=== PATIENT | female | born 1980 | race African-American/Black ===

== ENCOUNTER 2016-07-05 17:19 | Inpatient (IN) | payer OTHER ==
--- NOTE | ~2016-07-05 | HP ---
Unit #: [id number] #: [id number] Patient: PEARL MOBLEY [id number] [place] [address] [id number] MR#: [id number] NAME: PEARL MOBLEY ROOM: 63 Age: 35 Sex: F Admission Date: 07/05/2016 : 1980 Attending Physician: Arsalan Hsieh M.D. Admitting Physician: Arsalan Hsieh M.D. Primary Care Physician: Primary Care Physician No HISTORY AND PHYSICAL HISTORY OF PRESENT ILLNESS Pearl is a 35-year-old female admitted on 07/05/[address] [place] [address] for psychosis. She abruptly stopped taking her psych medications, has stopped taking care of herself, stopped talking and her family has been concerned about her. During the evaluation she did not answer any questions just stared at me occasionally shrugged her shoulders or shake her head. Therefore, all information is taken from records. PAST MEDICAL HISTORY Obesity. PAST SURGICAL HISTORY None documented. SOCIAL HISTORY She is , living with her and children. 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 No tobacco, alcohol or illegal drug use documented. FAMILY HISTORY Noncontributory. REVIEW OF SYSTEMS CONSTITUTIONAL: No fever or chills. HEENT: Denies any sore throat, ear pain or runny nose. CARDIOVASCULAR: Denies chest pain, irregular heart rhythm or palpitations. CHEST: Denies shortness of breath or cough. No hemoptysis. GASTROINTESTINAL: Denies nausea, vomiting, diarrhea or chronic constipation. ENDOCRINE: Denies history of increased thirst or urination. No recent significant weight loss or gain. GENITOURINARY: Denies dysuria, frequency, or hematuria. SKIN: Denies any rashes. HEMATOLOGIC: Denies history of increased bleeding or bruising. MUSCULOSKELETAL: Denies any hot, swollen joints. No generalized muscle pain. NEUROLOGIC: Denies problems with vision or speech. No frequent, severe headaches. No numbness, tingling or weakness in any extremities. Denies loss of bladder or bowel control. CURRENT MEDICATIONS Unit #: [id number] #: [id number] Patient: PEARL MOBLEY 1. Trazodone 2. Seroquel ALLERGIES No known drug allergies. PHYSICAL EXAMINATION GENERAL: Alert, oriented, in no acute distress. VITAL SIGNS: Blood pressure 126/92, heart rate 101, temperature 98.7. SKIN: Warm and dry without rash or lesion. HEENT: Normocephalic. TMs not viewed. Oral and nasal passages clear. Conjunctivae clear. PERRLA. EOMs intact. NECK: Supple without lymphadenopathy or thyromegaly. HEART: Regular rate and rhythm without murmur. LUNGS: Clear. ABDOMEN: Soft, nontender, without masses or hepatosplenomegaly. : Not done. EXTREMITIES: No evidence of cyanosis, clubbing or edema. Moves all without focal deficit. NEUROLOGICAL: Grossly within normal limits. Cranial Nerves: II: Visual mota are intact. III, IV AND : Extraocular movements are intact. Pupils are equal, round and reactive to light. V: Facial sensation is grossly normal. VII: Facial movements and expression are normal. VIII: Auditory acuity grossly intact. IX, X: Uvula is midline. Phonation is normal. XI: Patient shrugs shoulders and turns head normally. XII: Tongue protrudes in the midline. Sensory and Motor Function: Sensory and motor sensation is grossly normal. Motor: moves all extremities well. Coordination: Gait is normal. Deep Tendon Reflexes: Intact. IMPRESSION Psychiatric admission. RECOMMENDATIONS Psychiatric, per psychiatrist. MEDICAL: I see no contraindications to participating in facility's activities. MEDICAL PROGNOSIS Good. MEDICAL CONDITION Stable. Dictated by... Vimal Trevino TD: 07/06/2016 22:37 JOB #: [id number] Unit #: [id number] #: [id number] Patient: PEARL MOBLEY HISTORY AND PHYSICAL X RUPALI MILLIGAN APRN HISTORY AND PHYSICAL
--- NOTE | ~2016-07-05 | PN ---
Unit #: [id number] #: [id number] Patient: PEARL MOBLEY [id number] [facility] [address] [place] [address] [id number] Marielena MR#: [id number] NAME: PEARL MOBLEY ROOM: [facility] Age: 35 Sex: F Admission Date: 07/05/2016 : 1980 Attending Physician: Arsalan Hsieh M.D. Admitting Physician: Arsalan Hsieh M.D. Primary Care Physician: Primary Care Physician Christi COX NOTES DATE OF SERVICE: 07/07/2016 DISCUSSION I encountered Pearl crawling down the hallway of the unit, wiping the floor with her hands, she again refused to interact with me or acknowledge my presence, although I did several times attempt to speak to her. Staff reports she has been noncompliant with medications. Last night, she began yelling and running down the ott, and bumped her head on the wall. Neuro checks overnight were unremarkable and she showed no external evidence of injury. She appears alert and oriented to person and location only with poor memory and concentration and active, and intrusive psychosis. ASSESSMENT Bipolar mixed psychotic features. PLAN I will make Seroquel available at anytime to improve compliance and we will continue current precautions. Dictated by... Arsalan Hsieh M.D. DARREL/bakari TD: 07/08/2016 03:06 JOB #: [id number] MEKA COX NOTES Page 1 of 1 X Arsalan Hsieh MD X PROGRESS NOTE
--- NOTE | ~2016-07-05 | PN ---
Unit #: [id number] #: [id number] Patient: PEARL MOBLEY [id number] [facility] [address] [place] [address] [id number] MR#: [id number] NAME: PEARL MOBLEY ROOM: [facility] Age: 35 Sex: F Admission Date: 07/05/2016 : 1980 Attending Physician: Arsalan Hsieh M.D. Admitting Physician: Arsalan Hsieh M.D. Primary Care Physician: Christi Primary Care Physician MEKA COX NOTES DATE 07/11/2016. DISCUSSION Pearl continues to refuse medications and is now continuing to refuse oral fluids except for small amounts that can be given by specific staff members. She has also refused to eat. Last night she was showing some agitation and required intermuscular Ativan, but refused her bedtime Seroquel. This morning during my interview she once again refuses to engage in conversation, and is "shaking" in her bed, some of which appears to me to be voluntary. She did allow me to take her pulse, which seemed relatively normal, and her skin did not show any signs of clinical dehydration. When gathered a fingerstick blood glucose and requested by me during my rounds was normal at 100. ASSESSMENT Bipolar mixed with psychotic features. PLAN To assess for clinical dehydration, I am going to obtain a stat basic metabolic panel. We will continue to use p.r.n. medications as necessary and encourage the patient to comply fully with her scheduled medications. If further medical decompensation occurs, she may be transferred to another hospital for fluids. Dictated by... Skylar Roman/hector TD: 07/11/2016 13:32 JOB #: [id number] MEKA PROGRESS NOTES Page 1 of 1 X Arsalan Hsieh MD PROGRESS NOTE
--- NOTE | ~2016-07-05 | PN ---
Unit #: [id number] #: [id number] Patient: PEARL MOBLEY [id number] [facility] [address] [place] [address] [id number] I MR#: [id number] NAME: PEARL MOBLEY ROOM: [facility] Age: 35 Sex: F Admission Date: 07/05/2016 : 1980 Attending Physician: Arsalan Hsieh M.D. Admitting Physician: Arsalan Hsieh M.D. Primary Care Physician: Primary Care Physician Christi COX NOTES DATE OF SERVICE: 07/10/2016 DISCUSSION Pearl has now returned to refusing all medications. Her 72-hour hold is expiring, and we are forced with either finding an option for voluntary admission were finally mental inquest warrant. I will consult with our social services counselor and nursing staff about the options. She remains acutely psychotic with poor insight. ASSESSMENT Bipolar disorder mixed with psychotic features. PLAN Continue current medications and seek clarification of admission status. Dictated by... Skylar Roman/baakri TD: 07/17/2016 03:05 JOB #: [id number] MEKA PROGRESS NOTES Page 1 of 1 X Arsalan Hsieh MD PROGRESS NOTE
--- NOTE | ~2016-07-05 | DS ---
Unit #: [id number] #: [id number] Patient: PEARL MOBLEY [id number] [place] [address] [id number] I MR#: [id number] NAME: PEARL MOBLEY ROOM: [facility] Age: 35 Sex: F Admission Date: 07/05/2016 : 1980 Discharge Date: 07/22/2016 Attending Physician: Arsalan Hsieh M.D. Primary Care Physician: Primary Care Physician No DISCHARGE SUMMARY REASON FOR ADMISSION Pearl is a 35-year-old woman with a history of bipolar disorder, who has been noncompliant with medications and had stopped eating and taking oral fluids. She was essentially nonresponsive when her family brought her in and was admitted for stabilization. HOSPITAL COURSE The patient was admitted and placed on psychosis precautions. Her home medications were restarted and fluids and food were encouraged. She typically avoided interactions, refusing to answer questions and making poor eye contact. She occasionally engages in bizarre posturing or crawling on the floor, and continued to refuse medications for some time. Seroquel was provided to be given anytime that she would accept. She began to comply with medications after a period of time, and showed no signs of clinical dehydration. When she began Seroquel, she began to sleep a little better and her psychosis improved. She still had some paranoia on the date of discharge, but refused to stay any further and her family felt they could handle her in the home environment. DISCHARGE DIAGNOSES AXIS I: Bipolar mixed. AXIS II: No diagnosis. AXIS III: Recent yeast infection. AXIS IV: AXIS V: DISCHARGE INSTRUCTIONS Follow up with [facility] for mental health care and primary care physician. DISCHARGE MEDICATIONS Seroquel 400 mg at bedtime for psychosis, trazodone 100 mg at bedtime, and terconazole were discontinued. CONDITION AT DISCHARGE Fair. PROGNOSIS Fair, but will improve with compliance and activity. DIET AND ACTIVITY Ad gutierrez. Unit #: [id number] #: [id number] Patient: PEARL MOBLEY Dictated by... Arsalan Hsieh M.D. [facility]/asaell TD: 09/08/2016 00:06 JOB #: [id number] DISCHARGE SUMMARY Page 1 of 1 X Arsalan Hsieh MD DISCHARGE SUMMARY
--- NOTE | ~2016-07-05 | PN ---
Unit #: [id number] #: [id number] Patient: PEARL MOBLEY [id number] [facility] [address] [place] [address] [id number] MR#: [id number] NAME: PEARL MOBLEY ROOM: 63 Age: 35 Sex: F Admission Date: 07/05/2016 : 1980 Attending Physician: Arsalan Hsieh M.D. Admitting Physician: Arsalan Hseih M.D. Primary Care Physician: Primary Care Physician Christi ACKERMAN PROGRESS NOTES DATE 07/08/2016 DISCUSSION Pearl continues to refuse to interact with me or engage in conversation. She tends to sit in the hallway, and is occasionally prompted by nurses to return to her room. She did comply with her medication last night. She is alert and oriented to person and location only with poor memory concentration, ongoing psychosis. ASSESSMENT Bipolar mixed with psychotic features. PLAN Continue Seroquel and current precautions. Dictated by... Skylar RomanH/mane TD: 07/09/2016 07:47 JOB #: [id number] MEKA PROGRESS NOTES Page 1 of 1 X Arsalan Hsieh MD X PROGRESS NOTE
--- NOTE | ~2016-07-05 | PA ---
Unit #: [id number] #: [id number] Patient: PEARL MOBLEY [id number] [place] [address] [id number] MR#: [id number] NAME: PEARL MOBLEY ROOM: 63 Age: 35 Sex: F Admission Date: 07/05/2016 : 1980 Date of Assessment: 07/06/2016 Attending Physician: Arsalan Hsieh M.D. Admitting Physician: Arsalan Hsieh M.D. Primary Care Physician: Primary Care Physician No PSYCHIATRIC ASSESSMENT DATE OF SERVICE 07/06/2016. INFORMANTS The patient, reliable and OLOP, reliable. CHIEF COMPLAINT Psychosis. HISTORY OF PRESENT ILLNESS Pearl is a 35-year-old woman with a history of bipolar disorder, who apparently has been noncompliant with medications. Family reports that she has stopped eating, taking oral fluids, and has been noncompliant with all medications. She is essentially nonresponsive, refusing to answer questions, or engage in conversation, and has been noted to be urinating on herself. She was clearly in a decompensated state and admitted for stabilization. PAST PSYCHIATRIC HISTORY One previous hospitalization in [place], [place], in 2011 with a similar presentation. The patient has been taking Seroquel at home, but has been noncompliant. FAMILY PSYCHIATRIC HISTORY The patient denied a family history of mental illness or substance abuse. SOCIAL HISTORY The patient is on long-term disability. She lives with her and two children and has family in the area. She was unable to provide further social history. PAST MEDICAL HISTORY No chronic medical problems. MEDICATIONS In addition to Seroquel, the patient takes trazodone as needed for insomnia, and currently, is in temporary treatment for a vaginal yeast infection. Terconazole at bedtime x4 days. ALLERGIES No known medication allergies. SUBSTANCE ABUSE HISTORY Unit #: [id number] #: [id number] Patient: PEARL MOBLEY There is no reported history of chemical dependence. MENTAL STATUS EXAMINATION The patient presented as a neatly dressed and groomed woman, who appeared her stated age. She refused to acknowledge my presence or to engage in any type of psychiatric interview. She appeared to be responding to internal stimuli, although she was also seemed to voluntarily avoid conversation and eye contact. She does not appear to have any significant physical impairments at this time. A full psychiatric interview will be attempted when the patient improves. ASSETS AND LIABILITIES The patient is in general good health and has supportive family. Liabilities include noncompliance with medication and psychotic decompensation. ADMITTING DIAGNOSES AXIS I: Bipolar, most recent episode mixed with psychotic features, F31.64. AXIS II: No diagnosis. AXIS III: Vaginal yeast infection. AXIS IV: AXIS V: PSYCHIATRIC PLAN The patient was admitted and placed on psychosis precautions. We will encourage oral intake and we will restart her home psychiatric medications. She will enroll in psychotherapy groups and activities. TREATMENT GOALS Resolution of psychosis, improvement in insight, and improvement in coping skills. DISCHARGE PLANNING Follow up with [facility]. ESTIMATED LENGTH OF STAY 7 days. Dictated by... Arsalan Hsieh M.D. DARREL/bakari TD: 07/06/2016 19:56 JOB #: [id number] Unit #: [id number] #: [id number] Patient: PEARL MOBLEYRA PSYCHIATRIC ASSESSMENT X Arsalan Hsieh MD X PSYCHIATRIC ASSESSMENT
--- NOTE | ~2016-07-05 | PN ---
Unit #: [id number] #: [id number] Patient: PEARL MOBLEY [id number] [facility] [address] [place] [address] [id number] MR#: [id number] NAME: PEARL MOBLEY ROOM: [facility] Age: 35 Sex: F Admission Date: 07/05/2016 : 1980 Attending Physician: Arsalan Hsieh M.D. Admitting Physician: Arsalan Hsieh M.D. Primary Care Physician: Primary Care Physician Christi COX NOTES DATE OF SERVICE: 07/14/2016 DISCUSSION Pearl continues to be erratically compliant with medications. Her urinalysis demonstrates trace leukocyte esterase, 1+ urobilinogen, but no red blood cells and mild white blood cells per high-power field. She continues to have decreased oral intake and is refusing her antipsychotic medication. She did give a verbal consent for admission, which has been accepted by the hospital. ASSESSMENT Bipolar mixed with psychotic features. PLAN Continue current medications and precaution, encouraging full compliance and monitoring for medical changes. Dictated by... Skylar Roman/bakari TD: 07/15/2016 03:34 JOB #: [id number] MEKA COX NOTES Page 1 of 1 X Arsalan Hsieh MD PROGRESS NOTE
--- NOTE | ~2016-07-05 | PN ---
Unit #: [id number] #: [id number] Patient: PEARL MOBLEY [id number] [facility] [address] [place] [address] [id number] MR#: [id number] NAME: PEARL MOBLEY ROOM: [facility] Age: 35 Sex: F Admission Date: 07/05/2016 : 1980 Attending Physician: Arsalan Hsieh M.D. Admitting Physician: Arsalan Hsieh M.D. Primary Care Physician: Christi Primary Care Physician MEKA PROGRESS NOTES DATE 07/13/1969. DISCUSSION Pearl continues to refuse medications. She made a "lenka" on a voluntary admission form, but this is still unclear and I will require crepitation by the hospital administration before I can consider this a voluntary admission. She has been taking fluids, but refusing foods. She is alert and oriented to person and location with poor memory, ongoing psychosis. ASSESSMENT Bipolar mixed with psychotic features. PLAN We will continue to encourage full compliance. Dictated by... Skylar Roman/hector TD: 07/14/2016 13:20 JOB #: [id number] MEKA PROGRESS NOTES Page 1 of 1 X Arsalan Hsieh MD PROGRESS NOTE
--- NOTE | ~2016-07-05 | PN ---
Unit #: [id number] #: [id number] Patient: PEARL MOBLEY [id number] [facility] [address] [place] [address] [id number] MR#: [id number] NAME: PEARL MOBLEY ROOM: [facility] Age: 35 Sex: F Admission Date: 07/05/2016 : 1980 Attending Physician: Arsalan Hsieh M.D. Admitting Physician: Arsalan Hsieh M.D. Primary Care Physician: Primary Care Physician Christi ACKERMAN PROGRESS NOTES DATE 07/09/2016 DISCUSSION Pearl continues to accept medication erratically and slept poorly last night despite taking some Seroquel. Today, she continues to refuse oral interview and is nonverbal. She is alert and oriented to person and location only with a clear psychosis and poor insight. ASSESSMENT Bipolar, mixed with psychotic features. PLAN Increase Seroquel to 400 mg and continue to offer until taken. Dictated by... Skylar Roman/julai TD: 07/19/2016 23:27 JOB #: [id number] MEKA PROGRESS NOTES Page 1 of 1 X Arsalan Hsieh MD PROGRESS NOTE
--- NOTE | ~2016-07-05 | FU ---
[facility] Nutrition Therapy DATE: 07/21/16 Patient: PEARL MOBLEY Physician: KARLA Address: [address] [facility] Room/Bed: [address], Zip: [place] [id number] Admit Date: 07/05/16 Date of : [birth year] Height: Weight: 176 80 NUTRITION MONITORING/FOLLOW-UP: Reason: NUTRITION FOLLOW-UP FOR LENGTH OF STAY PATIENT ADMITTED FOR PSYCHOSIS Anthropometrics: NO HEIGHT, NO NEW WT (176#) Labs: NO NEW LABS Meds: SEROQUEL, DESYREL Assessment: PATIENT CONTINUES TO BE EXPERIENCING PSYCHOSIS, IS MOSTLY NON-VERBAL, AND IS A/O X2. PATIENT IS ERRATICALLY COMPLIANT WITH MEDICATIONS AND CONTINUES TO REFUSE FOOD AND FLUIDS WITH THE EXCEPTION OF SEVERAL SMALL BITES AND SIPS AT TIMES. PATIENT IS ALSO NOT PARTICIPATING IN ANY ACTIVITIES. NURSING REPORTS SHE FREQUENTLY PACES THE HALLS OR WILL STARE FOR A SIGNIFICANT AMOUNT OF TIME. PATIENT CONTINUES ON A FULL LIQUID DIET D/T NOT EATING SOLID FOODS. WILL CONTINUE TO MONITOR PATIENT'S WEIGHT (IF NURSING ABLE TO OBTAIN), PO AND FLUID INTAKES, AND LABS. Dx: INADEQUATE NUTRIENT INTAKE R/T CURRENT CONDITION AEB REFUSAL TO EAT OR DRINK, NEED FOR ALTERED DIET. - NO IMPROVEMENT!! Intervention: 1. FULL LIQUID DIET, 2. MEDS/FLUIDS PER MD, 3. PSYCH Monitoring, Evaluation and Goals: 1. ADEQUATE PO INTAKES >50% OF MEALS 2. PREVENT, CORRECT MICRO/MACRO NUTRIENT DEFICIENCIES 3. OBTAIN WEIGHT, PREVENT WEIGHT LOSS- IF PATIENT WILLING MONITOR: WEIGHTS, LABS, PO/FLUID INTAKES Recommendations: 1. CONTINUE WITH FULL LIQUID DIET D/T PATIENT'S REFUSAL TO EAT SOLID FOODS AND DRINK MOST FLUIDS. RECOMMEND OFFERING SOLID FOODS THROUGHOUT THE DAY AND BETWEEN MEALS 2. ENCOURAGE ADEQUATE PO AND FLUID INTAKES 3. CHECK BMP REGULARLY D/T PATIENT'S REFUSAL OF FOOD AND FLUIDS. PATIENT IS AT A SEVERE RISK FOR DEHYDRATION AND MALNUTRITION 4. ATTEMPT TO OBTAIN PATIENT'S HEIGHT AND WEIGHT 5. CONSIDER ORDERING AN APPETITE STIMULANT (PER MD ORDERS) D/T PATIENT'S REFUSAL ATT. IF PATIENT CONTINUES TO REFUSE FOOD AND FLUIDS, FURTHER NUTRITION INTERVENTIONS MAY NEED TO [facility] Nutrition Therapy DATE: 07/21/16 Patient: PEARL MOBLEY Physician: KARLA Address: [address] [place] [address] WALK Room/Bed: [address], Zip: [place] [address] Admit Date: 07/05/16 Date of : [birth year] Height: Weight: 176 80 BE CONSIDERED SUCH ENTERAL NUTRITION RD TO F/U PER PROTOCOL AND PRN R/T PATIENT MODERATELY/SEVERELY COMPROMISED Status: Respectfully, DAVID CORTES, NOLBERTO, LD Food and Nutritional Services [facility] cc: client file
--- NOTE | ~2016-07-05 | A ---
[facility] Nutrition Therapy DATE: 07/16/16 Patient: PEARL MOBLEY Physician: KARLA Address: [address] [place] [address] WALK Room/Bed: [address], Zip: [place] [address] Admit Date: 07/05/16 Date of : [birth year] Height: Weight: 176 80 NUTRITIONAL ASSESSMENT: REASON: LENGTH OF STAY PATIENT ADMITTED FOR PSYCHOSIS PMH: BIPOLAR D/O Anthropometrics: HT: PT REFUSAL, WT: 176# Labs: 07/11/16- NA: 151, BUN: 25, AST: 46, ALT: 61 Meds: SEROQUEL, DESYREL Assessment: CHART REVIEWED, EVENTS NOTED. PATIENT IS A 35 Y/O FEMALE ADMITTED FOR PSYCHOSIS. 1 WEEK PRIOR TO ADMIT, PATIENT HAD ABRUPTLY STOPPED TAKING HER MEDICATION, STOPPED TAKING CARE OF HER ADLS, AND HAS BEEN NON-VERBAL. PATIENT IS CURRENTLY A STAY AT HOME MOM, LIVES WITH HER AND CHILDREN, AND FAMILY DENIED ANY SUBSTANCE ABUSE. PATIENT DOES HAVE A HX OF INPATIENT PSYCH HOSPITALIZATION. PATIENT CONTINUES TO BE ELECTIVELY NON-VERBAL, AND SHE HAS ALSO CONTINUOUSLY REFUSED MEDICATIONS, FOOD, AND MOST FLUIDS. NURSING REPORTED PATIENT WILL TAKE SIPS OF LIQUIDS AT TIMES. PATIENT WAS SENT OUT TO [facility] ON 07/11/16 FOR FLUIDS AND MEDICAL CLEARANCE. PATIENT ALSO REFUSES TO HAVE VITALS TAKEN MOST TIMES, SHE IS INCONTINENT OF BOWEL AND BLADDER, AND SHE IS IN A WHEELCHAIR D/T REFUSAL TO AMBULATE MOST OF THE TIME. SHE IS CURRENTLY ON A FULL LIQUID DIET D/T REFUSAL OF FOOD. WEIGHT CHANGES ARE UNKNOWN D/T PATIENT'S REFUSAL TO OBTAIN WEIGHT. THERE ARE CURRENTLY NO SKIN OR GI ISSUES NOTED. Dx: INADEQUATE NUTRIENT INTAKE R/T CURRENT CONDITION AEB REFUSAL TO EAT OR DRINK, NEED FOR ALTERED DIET. Intervention: 1. FULL LIQUID DIET, 2. MEDS/FLUIDS PER MD, 3. PSYCH Monitoring, Evaluation and Goals: 1. ADEQUATE PO INTAKES >50% OF MEALS 2. PREVENT, CORRECT MICROO/MACRO NUTRIENT DEFICIENCIES 3. OBTAIN WEIGHT IF PATIENT WILLING. PREVENT WEIGHT LOSS MONITOR: WEIGHTS, LABS, PO/FLUID INTAKES Recommendations: 1. CONTINUE WITH FULL LIQUID DIET D/T PATIENT'S REFUSAL TO EAT SOLID FOODS AND DRINK MOST [facility] Therapy DATE: 07/16/16 Patient: PEARL MOBLEY Physician: KARLA Address: [id number] [place] [address] WALK Room/Bed: [address], Zip: [place] [address] Admit Date: 07/05/16 Date of : [birth year] Height: Weight: 176 80 LIQUIDS. 2. CONTINUE TO ENCOURAGE PO AND FLUID INTAKES 3. CHECK BMP REGULARLY D/T PATIENT'S REFUSAL OF FOOD AND FLUIDS. PATIENT IS AT A SEVERE RISK FOR DEHYDRATION AND MALNUTRITION 4. ATTEMPT TO ATTAIN PATIENT'S WEIGHT. CONTINUE TO MONITOR ROUTINELY (EVERY 3-4 DAYS) 5. CONSIDER ORDERING AN APPETITE STIMULANT (PER MD ORDERS) TO INCREASE PATIENT'S APPETITE RD TO F/U PER PROTOCOL AND PRN R/T PATIENT MODERATELY/SEVERELY COMPROMISED Respectfully, DAVID CORTES, RD, LD Food and Nutritional Services [facility] cc: client file
[~2016-07-05 17:19] MED LIST: BACTRIM DS TABL1 TA1 PO; LATUDA80 MG PO; TRAZODONE HCL150 MG PO; WELLBUTRIN PO
[2016-07-06 12:50] LABS: BILIRUBIN,TOTAL 1.3 mg/dL (0.2-2.0); BUN/CREATININE RATIO 19.28; CALCIUM SERUM 10.9 mg/dL (8.4-10.2); CREATININE SERUM 1.4 mg/dL (0.6-1.4); POTASSIUM 4.2 mmol/L (3.5-5.1); PROTEIN TOTAL SERUM 8.9 g/dL (6.0-8.3)
[2016-07-06 12:54] LABS: BASOPHIL% 0.4 % (0-2.5); EOSINOPHIL% 0.3 % (0.0-7.0); HEMATOCRIT 49.4 % (35.0-45.0); LYMPHOCYTE% 26.1 % (17.0-45.0); MEAN CELL VOLUME 86.7 FL (83-96); MEAN CORPUSCULAR HEMOGLOBIN 28.1 PG (28-34); MEAN CORPUSCULAR HGB CONC 32.5 g/dL (30-36); MEAN PLATELET VOLUME 10.1 FL (6.5-11.5); MONOCYTE# 0.8 X10e3 (0-1.0); MONOCYTE% 10.3 % (3.0-12.0); NEUTROPHIL# 4.8 X10e3 (1.5-7.1); NEUTROPHIL% 62.9 % (40-75); PLATELET COUNT 301 X10e3 (140-420); RED CELL DISTRIBUTION WIDTH 13.2 % (11.0-15.5); WHITE BLOOD COUNT 7.6 X10e3 (4.0-10.5)
[2016-07-06 12:57] LABS: DIFF IND NO
[2016-07-06 12:59] LABS: THYROID STIMULATING HORMONE 1.91 uIU/ml (0.34-5.60)
[2016-07-06 13:06] LABS: FREE THYROXIN (T4) 1.07 ng/dL (0.58-1.64)
[2016-07-11 13:08] LABS: BUN/CREATININE RATIO 27.77; CALCIUM SERUM 10.2 mg/dL (8.4-10.2); CREATININE SERUM 0.9 mg/dL (0.6-1.4); GLOM FILT RATE Estimated 96.1 mL/min (>60); POTASSIUM 4.1 mmol/L (3.5-5.1)
[2016-07-14 09:31] LABS: URINE APPEARANCE CLOUDY; URINE BLOOD NEG (NEG); URINE COLOR DK YELLOW; URINE GLUCOSE NEG (NEG); URINE KETONE 1+ (NEG); URINE LEUKOCYTE ESTERASE TRACE (NEG); URINE NITRATE NEG (NEG); URINE PH 5.5 (5-8); URINE PROTEIN NEG (NEG); URINE SPECIFIC GRAVITY 1.019 (1.003-1.035)
[2016-07-14 09:37] LABS: URINE BACTERIA AUWI NEG (NEGATIVE); URINE SQUAMOUS EPITHELIAL CELL OCC /[HPF]
[2016-07-14 10:07] LABS: CULTURE INDICATED? NO; URINE BILIRUBIN NEG (NEG); URINE CRYSTALS CALCIUM OXALATE /[HPF]; URINE MUCUS PRESENT
[2016-07-14 10:09] LABS: URBCS1 AUWI NEG /[HPF] (0-2)
[2016-07-14 10:28] LABS: AMPHETAMINE NEG (NEG); BARBITURATES NEG (NEG); BENZODIAZEPINES NEG (NEG); COCAINE NEG (NEG); MARIJUANA NEG (NEG); OPIATES NEG (NEG); TRICYCLIC ANTIDEPRESSANTS NEG (NEG); U METHADONE NEG (NEG)
== END 2016-07-22 14:45 | disposition home or self-care (01) | DRG 885 ==
LOC: P2L 17:19
PROVIDERS: Psychiatry & Neurology Psychiatry
DX: F31.64 Bipolar disorder, current episode mixed, severe, with psychotic features (principal); B37.3 Candidiasis of vulva and vagina
CPT/HCPCS: 80048; 80053; 80307; 81003; 82947; 84439; 84443; 85025; J0515; J1630; J2060; J3486

== ENCOUNTER 2016-07-11 17:35 | Emergency (ER) | payer OTHER | END 2016-07-11 20:19 | disposition HOOLOP | LOC: CED 17:35 | DX: E86.0 Dehydration (principal); F29 Unspecified psychosis not due to a substance or known physiological condition; F31.9 Bipolar disorder, unspecified; Z79.899 Other long term (current) drug therapy | CPT/HCPCS: 82947; 96360; 96361; 96372; 99284; J3486 ==